=== PATIENT | male | born 1940 | race Caucasian/White ===

== ENCOUNTER → 2016-10-22 | Day surgery (SDC) | payer OTHER ==
[~2016-10-22] MED LIST: ANTICRE6 PO; BACITRACIN IM FOR SOLN 50,000 UNIT VIAL ONE; BUPIVACAINE HCL PF 0.75% 30 ML VIAL ONE; BUPIVACAINE/EPINEPHRINE 0.5% PF 10 ML VIAL ONE; LACTATED RINGER'S 1000 ML INJ 1,000 ML ONE; LIDOCAINE 1.5%/EPINEPHrine 1:200,000 PF SOLN 30 ML AMP ONE; MIDAZOLAM HCL 5 MG/ML VIAL (1 ML) ONE; PROPOFOL 200 MG/20 ML AMP IV ONE; SODIUM CHLORIDE 0.9% INJ 10 ML ONE; SYNT125T PO; ceFAZolin INJ 1,000 MG VIAL ONE
--- NOTE | 2016-10-22 11:48 | TN ---
cc: SUMAN STORM M.D. DATE OF SURGERY 10/22/2016 PREOPERATIVE DIAGNOSIS 1. Left shoulder rotator cuff tear. 2. Left shoulder acromioclavicular degenerative arthritis. 3. Left shoulder AC joint cyst previously spontaneously decompressed. POSTOPERATIVE DIAGNOSIS Includes: 1. Left shoulder full-thickness retracted three tendon rotator cuff tear including subacromial impingement. 2. Left shoulder biceps tendon subluxation medially secondary to subscapularis rupture. 3. Left shoulder AC joint degenerative arthritis with previously decompressed ganglion cyst evident. PROCEDURE PERFORMED 1. Left 3 tendon shoulder rotator cuff repair including acromioplasty. 2. Biceps tenodesis 3. Partial distal clavicle excision including excision of ganglion cyst material previously spontaneously decompressed. SURGEON Suman Storm MD ANESTHESIA General via laryngeal mask augmented by interscalene block and local infiltration BLOOD LOSS Minimal FLUID REPLACEMENT 400 cc of crystalloid. SPECIMEN No specimens were sent, although both bone and the soft tissue cystic components from the AC joint were excised, but not sent for pathology. IMPLANTS Consisted of two Arthrex 5.5 mm Bio Corkscrew anchors with four FiberWire sutures each and two Arthrex 4.5 mm Bio PushLocks without suture. COMPLICATIONS There were no intraoperative complications. COUNTS All counts were correct. INDICATIONS FOR THE PROCEDURE Mr. Sheriff is a 76-year-old gentleman who had a significant shoulder prominence and a mass from an AC joint ganglion cyst that was identified on MRI. He was also noted to have evidence of a full-thickness rotator cuff tear as well. His AC joint cyst spontaneously decompressed and he began to have some improvement, however, he continued to have problems with both shoulder pain, weakness and elected to move forward with his planned repair and even though he spontaneously decompressed the cyst. I made it quite clear to him that he did have the option for ongoing nonsurgical care if desired, but he was eager to have it repaired to facilitate a more rapid and easier recovery before the fibrotic changes occurred in the cuff. I was in full agreement. A full written informed consent was obtained and he was aware of the potential complications such as re-rupture of the tear, the need for implants, the possibility of the need for allograft as well as the possibility of needing further procedures either now or in the future as a result of this pathology. A full written informed consent was obtained. DESCRIPTION OF THE PROCEDURE After the patient was verbally identified in the holding area, he had correctly marked his left shoulder for surgery and I had initialed it as well. He was given one gram of intravenous Ancef as prophylactic antibiotic and then he was given an interscalene block by anesthesia under ultrasound guidance. Once this was completed, he was taken into the operating suite where he was placed under general laryngeal mask anesthetic by Dr. Martin and then he was placed in a beach-chair position and had his left shoulder and arm prepped and draped free in the normal standard fashion. At this time, a brief time-out was held confirming the left shoulder was the appropriate surgical site. The team was in agreement and the case was now begun. At this time, a 5-cm incision was made centering over the acromioclavicular joint. The subcutaneous tissues were divided and hemostasis was achieved with electrocautery. The AC joint was then subperiosteally dissected both medially and laterally extending it anteriorly for approximately 1 cm into the deltoid muscle and dividing it bluntly between the fibers. As soon as the AC joint was entered, there was evidence of what appeared to be a decompressed ganglion cystic sac. It was somewhat bluish in nature and there was significant underlying arthritis of the acromioclavicular joint as well. I went ahead and carried out the dissection deeper and deep to the deltoid fascia, a large kaur of joint fluid came through consistent with a full-thickness rotator cuff tear being present. There was high-grade subacromial impingement as well as subclavicular impingement from AC joint osteophytes and I went ahead and performed a generous acromioplasty with the use of an oscillating saw which significantly decompressed the subacromial space and I furthermore excised the distal 1 cm of clavicle including the material that would be consistent with the prior AC joint ganglion cyst. I left no material that would be suspicious of ganglionic material and would be somewhat surprised if there was evidence of a recurrence due to the thorough debridement. At this time, the rotator cuff was now explored in more detail. There was a full-thickness tear involving the subscapularis, the supraspinatus and the infraspinatus. I went ahead and freshened the leading edges. There were some globular changes seen and I cleaned the leading edge with a #15 blade getting good fresh bleeding edge. A bony trough was made along the surface of the footprint of the supraspinatus, subscapularis and infraspinatus and the underlying surface of the AC joint was thoroughly rasped to further smoothed it and to eliminate any residual impingement. The glenohumeral joint was now explored. There was no evidence of any loose bodies. There was some very mild underlying degenerative arthritis, but no full-thickness cartilage loss was appreciated anywhere. The labrum had some degenerative fraying, but no evidence of any large unstable tear was appreciated. I went ahead and placed two 5.5 mm Bio Corkscrews with four fiberwire sutures on each anchor in the footprint of the greater tuberosity and went ahead and passed #2 FiberWire sutures through the leading edge of the subscapularis, supraspinatus and the infraspinatus sequentially. Once these were placed, I went ahead and reapproximated the rotator cuff by applying tension on the sutures and I was able to get the cuff tear to reapproximate nearly anatomically at this time. There was evidence of medial subluxation of the biceps tendon primarily due to the fact the subscapularis tendon had ruptured and had exposed it. There was not a great deal of hypertrophic synovitis appreciated, but there clearly was evidence of pathology at that site. I went ahead and elected to perform a biceps tenodesis in order to stabilize the biceps tendon. This was above and beyond the rotator cuff repair procedure itself. I went ahead and used further #2 FiberWire suture and stabilized the biceps tendon within the intertubercular groove by suturing it down to the repaired subscapularis and down to the periosteal tissue. There was good stabilization of the biceps tendon following this placement of suture material and I did not feel as though a tenodesis screw was necessary. I went ahead and then tied down the rotator cuff sutures sequentially and felt as though we had a nice medial row repair as a result, but I felt that I wanted further reinforcement in the event that either there was partial rupture or we lost a suture. As a result, I went ahead and then placed a lateral row with 4.5 mm Bio PushLocks which were placed approximately 1 cm beyond the medial row and this then incorporated the sutures from the medial row. I formed a modified speed bridge with a lateral row getting a good solid secondary reinforcement which further smoothed the primary suture line and flattened it out significantly. At this time, the AC joint and the glenohumeral joint were thoroughly irrigated with antibiotic-containing saline. There was no evidence of any active bleeding. I went ahead and reapproximated the periosteal tissue over the acromioclavicular joint with further #2 FiberWire sutures getting a good solid AC joint repair, as well as the deltoid origin was reapproximated in a similar manner. There was no evidence of any instability of the AC joint at this time as well. I went ahead and then I irrigated subcutaneous tissues then closed with 2-0 Vicryl inverted subcutaneous stitches and closed the skin with ewelina. An additional 20 cc of 0.5% Marcaine with epinephrine was infiltrated subcutaneously and in the subacromial space for postop pain relief. He was then dressed with Xeroform, 4x4s, ABD's and foam tape and was placed into a regular sling. He was then awoken from anesthesia and taken to recovery in stable condition. Appropriate postoperative orders have been written. Suman Storm MD Electronically Signed MD SHAILA Cui/AMMON /10:50 AM /11:32 AM MTDD
== END | disposition home or self-care (01) ==
LOC: ESDC 07:09
PROVIDERS: ATTEND Orthopaedic Surgery Sports Medicine
DX: M75.122 Complete rotator cuff tear or rupture of left shoulder, not specified as traumatic (principal); M19.012 Primary osteoarthritis, left shoulder; M67.412 Ganglion, left shoulder
CPT/HCPCS: 00450; 01630; 01716; 01991; 23120; 23420; 23430; 64417; 76942; C1713; J0690; J2250; J7120